=== PATIENT | male | born 1945 | race Caucasian/White ===

== ENCOUNTER 2023-04-22 09:40 | Day surgery (SDC) | payer OTHER ==
[~2023-04-22] VITALS: Ht 177.8 cm; Wt 106.6 kg
[2023-04-22] MEDS ORDERED: PRALUENT P75 MG/1 ML SQ (10:41)
[2023-04-22] MEDS ORDERED: CALC.25 PO (10:43)
[2023-04-22] MEDS ORDERED: ELIQUIS5 M2 PO (10:43)
[2023-04-22] MEDS ORDERED: LASIX40 MG PO (10:43)
[2023-04-22] MEDS ORDERED: EZET10 (10:43)
[2023-04-22] MEDS ORDERED: HYDRA50 PO (10:44)
[2023-04-22] MEDS ORDERED: INSULANPEN SC (10:44)
[2023-04-22] MEDS ORDERED: LISI20 PO (10:45)
[2023-04-22] MEDS ORDERED: METO100ER PO (10:45)
[2023-04-22] MEDS ORDERED: OMEGA-3-FISH O1 EAC3 PO (10:46)
[2023-04-22] MEDS ORDERED: POTA10T PO (10:46)
[2023-04-22] MEDS ORDERED: OZEMPIC1 MG/0.72 SQ (10:47)
[2023-04-22] MEDS ORDERED: VERA120 PO (10:49)
--- NOTE | 2023-04-22 10:52 | NUR ---
04/22/23 1052 Charis Cardenas AT 1046 PLEDGET AT 104
[2023-04-22 11:50] VITALS: BP 132/96
--- NOTE | 2023-04-22 12:57 | NUR ---
04/22/23 WILLIE ALBERTO PT PRESENTED TO PREOP IN AFIB. HE CONTINUED TO HAVE AFIB IN OR DISPITE ATTEMPTS BY ANESTHESIOLOGIST, DR. DELANEY. PT PRESENTS IN SDU IN AFIB WELL. CONTACTED DR. YEUNG OFFICE TO REQUEST THAT THEY SEE THE PATIENT FOR AFIB. WE WERE TOLD THAT THEY WERE TOO BUSY TO SEE TODAY AND THAT TOMORROW THAT THEY DIDN'T HAVE ANYONE IN TO SEE HIM. CALLED THE [facility]. DISCUSSED SITUATION WITH SANTO- NURSE. PT IS GOING TO GO TO THE [facility]- URGENT [facility]ARE - STRAIGHT TO THEM AT DISCHARGE. PT IS A BIT DIZZY BUT THAT COULD BE TO MEDS GIVEN DURING SURGERY. PT WAS TAKEN OUT BY WC. PT/ LIVE IN [place], OR WHICH IS OVER 45 MINUTES AWAY. AT FIRST PT THOUGHT THAT IF HE WENT HOME AND TOOK HIS METOPOROL AND ELOQUIS, THAT HIS AFIB WOULD PROBABLY GO AWAY. THIS WAS UPSETTING TO THE AND THIS NURSE IS RELIEVED TO KNOW THAT HE IS GOING TO FOLLOW-UP WITH THE [facility] FOR HIS AFIB. SANTO STATED THAT HE WOULD NOTIFY PT PCP. ALSO STATED THAT HE WOULD NEED TO BE GIVEN MEDICATION THROUGH IV TO LOWER HIS PULSE SLOWLY/SAFELY. CO-WORKER PRINTED VITALS FOR PT, HE DID NOT PRINT ALL OF HIS VITALS. I DID A 3 LEAD ON PT. SEE CHART FOR DETAILS
== END 2023-04-22 12:40 | disposition home or self-care (01) ==
LOC: ORSCSDS 09:40
PROVIDERS: Ophthalmology
PROC: 08RJ3JZ Replacement of Right Lens with Synthetic Substitute, Percutaneous Approach (ICD-10-PCS; principal; 2023-04-22 11:00)
DX: E11.36 Type 2 diabetes mellitus with diabetic cataract (principal); H25.11 Age-related nuclear cataract, right eye; H52.201 Unspecified astigmatism, right eye; I48.91 Unspecified atrial fibrillation; E78.5 Hyperlipidemia, unspecified; E11.22 Type 2 diabetes mellitus with diabetic chronic kidney disease; I12.9 Hypertensive chronic kidney disease with stage 1 through stage 4 chronic kidney disease, or unspecified chronic kidney disease; N18.9 Chronic kidney disease, unspecified; F43.10 Post-traumatic stress disorder, unspecified; Z79.01 Long term (current) use of anticoagulants; Z79.85 Long-term (current) use of injectable non-insulin antidiabetic drugs; Z79.4 Long term (current) use of insulin; Z79.899 Other long term (current) drug therapy
CPT/HCPCS: 82947; J2250; J3010; J3301; J7040; V2632